=== PATIENT | male | born 1975 | race American Indian/Alaskan Native ===

== ENCOUNTER 2018-12-09 06:08 | Day surgery (SDC) | payer BC ==
[2018-12-09] MEDS ORDERED: ECOTRIN PO ONE (06:22)
[2018-12-09] MEDS: NACL 0.9% 500 ML 500 ML IV SCH ×2 (07:07→09:00)
[2018-12-09 08:03] LABS: Basophils # (Auto) 0.1 K/mm3 (0.0-0.1); Basophils % (Auto) 0.9 % (0.0-1.8); Eosinophils # (Auto) 0.1 K/mm3 (0.0-0.4); Eosinophils % (Auto) 1.5 % (0.0-4.3); Hematocrit 43.6 % (35.5-45.6); Hemoglobin 14.7 gm/dl (11.8-15.2); Lymphocytes # (Auto) 2.8 K/mm3 (1.2-5.4); Lymphocytes % (Auto) 40.2 % (13.4-35.0); Mean Corpuscular HGB Conc 34 % (32-34); Mean Corpuscular Volume 86 fl (84-94); Monocytes # (Auto) 0.5 K/mm3 (0.0-0.8); Monocytes % (Auto) 6.7 % (0.0-7.3); Platelet Count 282 K/mm3 (140-440); Red Blood Count 5.05 M/mm3 (3.65-5.03); Red Cell Distribution Width 14.1 % (13.2-15.2)
[2018-12-09 08:13] LABS: INR 0.94 (0.87-1.13)
[2018-12-09 08:16] LABS: BUN/Creatinine Ratio 11; Blood Urea Nitrogen 10 mg/dL (9-20); Calcium 8.9 mg/dL (8.4-10.2); Hemolysis Index 1
[2018-12-09] MEDS ORDERED: HEPARIN/NS 5000 UNIT/500ML(CATH LAB) 1,000 ML IR ONE (08:47)
[2018-12-09] MEDS ORDERED: NITROGLYCERIN SYRINGE 0 ML ONE (08:47)
[2018-12-09] MEDS: VERSED ONE ×4 (09:00→09:13)
[2018-12-09] MEDS: XYLOCAINE 2% INFILTRATI ONE ×2 (09:00→09:10)
[2018-12-09] MEDS: SUBLIMAZE ONE ×3 (09:00→09:10)
[2018-12-09] MEDS: CALAN ONE ×2 (09:01→09:10)
[2018-12-09] MEDS: HEPARIN 10,000 UNITS/10 ML ONE ×2 (09:02→09:11)
--- NOTE | 2018-12-09 09:49 | Cardiac Catherization Report ---
INDICATION FOR PROCEDURE: The patient is a 43-year-old gentleman with history of chest pains in spite of negative stress thallium. Echocardiogram showed normal LV function with mild LVH. Because of his persistent chest pain, he was scheduled for cardiac catheterization for definitive diagnosis and treatment. The patient is aware of the procedure, potential complications, and alternatives of therapy available. DESCRIPTION OF PROCEDURE: The patient was brought to the catheterization laboratory in a fasting condition. The patient was evaluated for moderate sedation and was felt to be appropriate candidate for moderate sedation. Received IV Versed and fentanyl starting at 9:06 a.m. Subsequently, the patient was prepared in standard fashion and right wrist area and forearm thoroughly cleansed with chlorhexidine solution and sterile drapes were applied. Local anesthesia was achieved using 2% Xylocaine. Right radial artery puncture was made using 21-gauge arterial puncture needle. Subsequently, [place] slender sheath was introduced. The patient received 3000 units of intravenous heparin and 5 mg of intra-arterial verapamil. A [place] multipurpose catheter was used to obtain the angiograms of the right coronary artery in multiple views followed by angiograms of the left coronary artery in multiple views and left ventriculogram done in DAVEY projection using hand injection. At the end of the procedure, catheter and sheath were removed and good hemostasis was achieved with a radial band. The patient tolerated the procedure well. No untoward complications were noted. The patient was monitored throughout the procedure for any side effects from moderate sedation with pulse oximetry, EKG monitoring, and hemodynamic monitoring. At the end of the procedure, the patient was breathing normally and communicating normally and able to move all the extremities. The patient's sedation started at 9:06 a.m. and ended at 9:17 a.m. The patient was transferred to the room in stable condition. Following findings were noted. HEMODYNAMICS: 1. Opening aortic pressure 123/83, left ventricular pressure 127/16. No gradient across the aortic valve. Estimated ejection fraction more than 65%. 2. Left ventriculogram done in DAVEY projection using hand injection showed normal-sized left ventricle with excellent contractility. Mitral regurgitation could not be evaluated because of limited amount of dye. 3. Right coronary artery arises normally from right coronary cusp. This is very, very tortuous, dominant vessel, but angiographically smooth and normal. 4. Left coronary artery arises normally from left coronary cusp, left main, which is long and LAD, which is very tortuous along with circumflex artery and its branch are angiographically smooth and normal. FINAL IMPRESSION: 1. Normal-sized left ventricle with excellent contractility. End-diastolic pressure upper limits of normal to mildly elevated. 2. Normal coronary anatomy angiographically, but very, very tortuous vessels noted. 3. At this time, etiology of his chest pain is not clear. We will continue risk factor modification. The patient tolerated the procedure well. Findings were explained to the patient and family. JOB# [id number] CHRISTEN/AMINATA
--- NOTE | 2018-12-09 10:30 | Short Stay Summary ---
Short Stay Documentation Date of service: 12/09/18 - History H&P: obtained from office - Allergies and Medications Current Medications: Allergies No Known Allergies Allergy (Unverified 12/09/18 06:09) Home Medications Medication Instructions Recorded Confirmed Last Taken Type amLODIPine [Norvasc] 10 mg PO DAILY 12/09/18 12/09/18 Unknown History Active Medications Sodium Chloride (Nacl 0.9% 500 Ml) 500 mls @ 50 mls/hr IV DIRECT [facility] Stop: 12/09/18 16:59 Last Admin: 12/09/18 09:00 Dose: 50 mls/hr Documented by: - Brief post op/procedure progress note Date of procedure: 12/09/18 Pre-op diagnosis: chest pain Post-op diagnosis: other (normal coronaries) Procedure: [facility] - see dictated cath report Anesthesia: local Estimated blood loss: none Condition: stable - Disposition Condition at discharge: Good Disposition: [id number] TO HOME OR SELFCARE - Discharge Diagnoses (1) Normal coronary arteries Status: Chronic (2) Chest pain Status: Chronic Short Stay Discharge Plan Activity: advance as tolerated Wound: open to air, keep clean and dry, per your surgeon's advice Follow up with: DUARTE BARNES MD [Primary Care Provider] - 7 Days KIM HUYNH MD [Staff Physician] - 7 Days
[2018-12-09 12:20] VITALS: BP 133/99
== END 2018-12-09 12:15 | disposition home or self-care (01) ==
LOC: CATHLABREC 06:08
PROVIDERS: ATTEND Internal Medicine
DX: R07.89 Other chest pain (principal); F17.210 Nicotine dependence, cigarettes, uncomplicated; I10 Essential (primary) hypertension; K21.9 Gastro-esophageal reflux disease without esophagitis; M19.90 Unspecified osteoarthritis, unspecified site; Z98.890 Other specified postprocedural states; Z79.899 Other long term (current) drug therapy
CPT/HCPCS: 36415; 80048; 85025; 85610; 85730; 93005; 93010; 93458; 99156; C1894; J1644; J2250; J3010; J7040; Q9967